=== PATIENT | female | born 1980 | race Caucasian/White ===

== ENCOUNTER 2016-11-28 18:37 | Emergency (ER) | payer OTHER ==
[~2016-11-28] VITALS: Ht 167.6 cm; Wt 77.0 kg
[~2016-11-28 18:37] MED LIST: IOHEXOL-300 100 ML BOTTLE ONE; SODIUM CHLORIDE 0.9% 10ML VIAL ONE
[2016-11-28 22:45] LABS: BASOPHILS % 0.8 % (0.0-2.0); EOSINOPHILS % 0.2 % (0.0-5.0); HEMATOCRIT. 40.6 % (36.0-48.0); HEMOGLOBIN. 13.9 g/dL (12.0-16.0); MEAN CORPUSCULAR HEMOGLOBIN 29.9 pg (28.0-32.0); MEAN CORPUSCULAR VOLUME 87.5 fL (81.0-99.0); MEAN PLATELET VOLUME 8.6 fl (7.4-10.4); MONOCYTES % 3.9 % (2.0-8.0); NEUTROPHILS % 66.1 % (40.0-76.0); PLATELET 252 x1000/uL (130-400); RED BLOOD CELL COUNT 4.65 mill/uL (4.2-5.4); RED CELL DISTRIBUTION WIDTH 13.2 % (11.6-14.6)
[2016-11-28 22:50] LABS: CHLORIDE 105 mEq/L (98-107)
[2016-11-28 22:53] LABS: PROTHROMBIN TIME 10.7 sec
[2016-11-28 22:55] LABS: CARBON DIOXIDE 27 mEq/L (21-32)
[2016-11-28] MEDS: SODIUM CHLORIDE 0.9% 1,000 ML IV ONE (23:18)
[2016-11-28] MEDS: ONDANSETRON HCL 4MG/2ML VIAL IV STA (23:18)
[2016-11-28] MEDS: KETOROLAC 30MG/ML VIAL IV STA (23:18)
[2016-11-29 01:04] LABS: CLARITY URINE TURBID (CLEAR); COLOR URINE YELLOW (YELLOW); GLUCOSE URINE NEGATIVE (NEGATIVE); KETONES URINE NEGATIVE (NEGATIVE); LEUKOCYTE ESTERASE URINE NEGATIVE (NEGATIVE); NITRITE URINE NEGATIVE (NEGATIVE); OCCULT BLOOD URINE NEGATIVE (NEGATIVE); PROTEIN URINE NEGATIVE (NEGATIVE); SPECIFIC GRAVITY URINE 1.017 (1.005-1.030); UROBILINOGEN URINE 0.2 E.U./dL (0.2-1.0)
[2016-11-29] MEDS: HYDROCODONE/ACETAMINOPHEN 5/325MG TABLET PO NR (03:01)
[2016-11-29 03:02] VITALS: BP 125/83
== END 2016-11-29 03:05 | disposition home or self-care (01) ==
LOC: ER 19:57
DX: S13.4XXA Sprain of ligaments of cervical spine, initial encounter (principal); S20.219A Contusion of unspecified front wall of thorax, initial encounter; S00.93XA Contusion of unspecified part of head, initial encounter; I31.3 Pericardial effusion (noninflammatory); M79.602 Pain in left arm; R07.9 Chest pain, unspecified; V49.88XA Car occupant (driver) (passenger) injured in other specified transport accidents, initial encounter; Y93.89 Activity, other specified; Y92.89 Other specified places as the place of occurrence of the external cause; Y99.8 Other external cause status
CPT/HCPCS: 36415; 70450; 71260; 72125; 74177; 80053; 81001; 81025; 85025; 85610; 93005; 96374; 96375; 99285; A4216; J1885; J2405; J7030; Q9967; Z7610